=== PATIENT | female | born 1945 | race Caucasian/White ===

== ENCOUNTER 2018-10-04 09:00 | Emergency (ER) | payer BC, OTHER ==
[~2018-10-04] VITALS: Ht 160 cm; Wt 56.7 kg
[2018-10-04] MEDS ORDERED: IV NORMAL SALINE 1000 ML BAG IV ONE (09:15)
--- NOTE | 2018-10-04 09:20 | NUR ---
seen by Dr Conte. patient was refusing tests. MD talked to patient.
[2018-10-04 09:40] LABS: CARBON DIOXIDE 23 mmol/L (21-32); CHLORIDE 100 mmol/L (98-107); CREATININE 0.8 mg/dL (0.6-1.3); GLUCOSE 177 mg/dL (74-106); UREA NITROGEN, BLOOD 9 mg/dL (7-18)
[2018-10-04 09:43] LABS: BASOPHILS % (AUTO) 0.5 % (0.0-2.0); EOSINOPHILS % (AUTO) 0.2 % (0.0-7.0); HEMATOCRIT 37.2 % (31.2-41.9); HEMOGLOBIN 12.9 g/dL (10.9-14.3); LYMPHOCYTES # (AUTO) 0.7 K/uL (20.0-40.0); MEAN CORPUSCULAR HEMOGLOBIN 36.6 uug (24.7-32.8); MEAN CORPUSCULAR HGB CONC 35 g/dL (32.3-35.6); MONOCYTES # (AUTO) 0.7 K/uL (2.0-10.0); NEUTROPHILS % (AUTO) 80.3 % (38.5-71.5); PLATELET COUNT (AUTO) 182 K/uL (179-408); RED BLOOD CELL COUNT(AUTO) 3.51 MIL/uL (3.63-4.92); WHITE BLOOD COUNT (AUTO) 7.4 K/uL (3.8-11.8)
--- NOTE | 2018-10-04 09:43 | NUR ---
to Radiology for CT scan
[2018-10-04 09:45] LABS: POTASSIUM 2.2 mmol/L (3.5-5.1)
[2018-10-04 09:48] LABS: ALANINE AMINOTRANSFERASE 53 U/L (14-59); ALKALINE PHOSPHATASE 134 U/L (50-136); ASPARTATE AMINOTRANSFERASE 27 U/L (15-37); BILIRUBIN,DIRECT 0.2 mg/dL (0.0-0.2); BILIRUBIN,TOTAL 1.1 mg/dL (0.1-1.0); TOTAL PROTEIN, SERUM 7.5 g/dL (6.4-8.2)
[2018-10-04] MEDS ORDERED: POTASSIUM BICARBONATE/CIT AC 25 MEQ TABLET.EFF ONE (09:59)
[2018-10-04] MEDS ORDERED: POTASSIUM BICARBONATE/CIT AC 25 MEQ TABLET.EFF PO ONE (10:00)
[2018-10-04] MEDS ORDERED: POTASSIUM CHLORIDE 50 ML IV SCH (10:00)
[2018-10-04] MEDS ORDERED: POTASSIUM CHLORIDE 50 ML ONE (10:00)
[2018-10-04 10:08] LABS: THYROID STIMULATING HORMONE 2.892 mIU/mL (0.358-3.740)
[2018-10-04] MEDS ORDERED: MAGNESIUM SULFATE/D5W 100 ML IV SCH (10:15)
[2018-10-04] MEDS ORDERED: MAGNESIUM SULFATE/D5W 100 ML ONE (10:41)
[2018-10-04] MEDS ORDERED: LEVETIRACETAM IV 500 MG in IV DEXTROSE 5% 100 ML IV ONE (10:45)
[2018-10-04 11:57] LABS: *BILIRUBIN,URIN NEGATIVE (NEGATIVE); *BLOOD, URINE 1+ (NEGATIVE); *CLARITY,URINE CLEAR (CLEAR); *COLOR,URINE YELLOW (YELLOW); *KETONES,URINE TRACE (NEGATIVE); *UROBILINOGEN,URINE 0.2 E.U./dl (NORMAL); LEUKOCYTE ESTERASE ,URINE 2+ (NEGATIVE); NITRITE, URINE NEGATIVE (NEGATIVE); UGLUCOSE NEGATIVE (NEGATIVE)
--- NOTE | 2018-10-04 12:10 | NUR ---
Received telephone call from [facility]. Pt has been accepted by , pt will go to room 4410 bed 2 ([phone] for report ). Requested information faxed to [phone]. 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
[2018-10-04 12:12] LABS: BACTERIA,URINE MODERATE /HPF (NONE SEEN); SQUAMOUS EPITHELIAL CELL,UR FEW /HPF (NONE SEEN)
[2018-10-04 12:13] LABS: MUCUS,URINE MANY /LPF (0-FEW)
--- NOTE | 2018-10-04 12:18 | NUR ---
ETA for car pick up driver is 1445 per [facility].
[2018-10-04] MEDS ORDERED: CEFTRIAXONE 1 G in IV DEXTROSE 5% 50 ML IV ONE (12:30)
[2018-10-04] MEDS ORDERED: CEFTRIAXONE 1 G VIAL ONE (12:44)
--- NOTE | 2018-10-04 13:38 | NUR ---
ambulated to BR with assistance. Voided
--- NOTE | 2018-10-04 14:51 | NUR ---
report given to [facility] paramedics, [place] and to [facility].
[2018-10-04 15:08] VITALS: BP 113/68
--- NOTE | 2018-10-17 08:45 | NUR ---
LATE ENTRY: 10/04/18: KCL 10meq IVPB was started at 1037 and completed at 1125. 10/04/18: Keppra 500mg IVPB was started at 1125 and completed at 1225.
== END 2018-10-04 15:10 | disposition short-term general hospital (02) ==
LOC: ER 09:00
DX: S06.5X0A Traumatic subdural hemorrhage without loss of consciousness, initial encounter (principal); E87.6 Hypokalemia; E83.42 Hypomagnesemia; V43.52XA Car driver injured in collision with other type car in traffic accident, initial encounter; Y93.89 Activity, other specified; Y92.410 Unspecified street and highway as the place of occurrence of the external cause; Y99.8 Other external cause status
CPT/HCPCS: 36415; 70450; 71045; 72125; 80048; 80076; 81001; 83605; 83735; 83880; 84443; 84484; 85025; 85730; 87040 ×2; 87086; 93005; 96365; 96368; 96375; 99291; J0696; J1953; J3475; J3480; J7060 ×2; 70030-TC; A4663

== ENCOUNTER 2018-11-14 12:16 | Inpatient (IN) | payer BC, MEDICARE, OTHER ==
[~2018-11-14] VITALS: Ht 160 cm; Wt 56.7 kg
[2018-11-14] MEDS ORDERED: IV NORMAL SALINE 1000 ML BAG IV ONE (12:30)
--- NOTE | 2018-11-14 12:50 | NUR ---
pt son at bed side. per pt son, pt fell down yestrday around 10 am and eversince pt is weaker than baseline. notified.
[2018-11-14 12:52] LABS: BASOPHILS # (AUTO) 0.1 K/uL (0.0-8.0); BASOPHILS % (AUTO) 0.7 % (0.0-2.0); EOSINOPHILS % (AUTO) 0.3 % (0.0-7.0); HEMATOCRIT 37.7 % (31.2-41.9); HEMOGLOBIN 12.5 g/dL (10.9-14.3); LYMPHOCYTES # (AUTO) 0.8 K/uL (20.0-40.0); LYMPHOCYTES % (AUTO) 6.4 % (20.5-51.5); MEAN CORPUSCULAR HEMOGLOBIN 29.9 uug (24.7-32.8); MEAN CORPUSCULAR HGB CONC 33 g/dL (32.3-35.6); MEAN CORPUSCULAR VOLUME 90.1 fL (75.5-95.3); MONOCYTES % (AUTO) 7.3 % (0.0-11.0); NEUTROPHILS # (AUTO) 11.2 K/uL (1.8-8.9); NEUTROPHILS % (AUTO) 85.3 % (38.5-71.5); PLATELET COUNT (AUTO) 285 K/uL (179-408); RED BLOOD CELL COUNT(AUTO) 4.18 MIL/uL (3.63-4.92); WHITE BLOOD COUNT (AUTO) 13.2 K/uL (3.8-11.8)
[2018-11-14 12:52] LABS: CARBON DIOXIDE 25 mmol/L (21-32); CHLORIDE 99 mmol/L (98-107); CREATININE 0.6 mg/dL (0.6-1.3); GLUCOSE 155 mg/dL (74-106); POTASSIUM 3.3 mmol/L (3.5-5.1); UREA NITROGEN, BLOOD 12 mg/dL (7-18)
[2018-11-14 12:58] LABS: ALANINE AMINOTRANSFERASE 18 U/L (14-59); ALKALINE PHOSPHATASE 149 U/L (50-136); ASPARTATE AMINOTRANSFERASE 19 U/L (15-37); BILIRUBIN,DIRECT 0.3 mg/dL (0.0-0.2); TOTAL PROTEIN, SERUM 8.3 g/dL (6.4-8.2)
--- NOTE | 2018-11-14 13:50 | NUR ---
[facility] provided for pt per request.
--- NOTE | 2018-11-14 14:10 | NUR ---
rusty velazquez at bedside.
--- NOTE | 2018-11-14 14:40 | NUR ---
RECEIVED REPORT FROM ER NURSE.
--- NOTE | 2018-11-14 15:11 | NUR ---
pt remained calm and comfortable the whole er stay. no change in neuro status.
[2018-11-14] MEDS ORDERED: ASPIRIN 325 MG TABLET PO ONE (15:15)
--- NOTE | 2018-11-14 15:44 | NUR ---
Argelia torres in [facility] - 11/14/18 at 1545 by LIBRA pt transfered to floor in table condition.
--- NOTE | 2018-11-14 15:45 | NUR ---
pt transfered to floor in stable condition.
--- NOTE | 2018-11-14 15:50 | NUR ---
PATIENT BROUGHT UP TO FLOOR FROM ER. PATIENT HAS ACCESS ON THE RIGHT AC 22G LINE IS PATENT AND INTACT. PATIENT IS AWAKE ALERT AND ORIENTED. PATIENT IS ON TELE MONITOR SINUS TACHY. NOTIFIED WORSHIP DIRECTOR MELITON BARRAZA THAT PATIENT IS ON THE FLOOR, SHE WILL PUT IN ORDERS. WILL PUT IN ORDERS FOR URINALYSIS. WILL CONTINUE TO MONITOR PATIENT. PLAN IS TO TRANSFER PATIENT TO [facility] FOR MRI OF THE BRAIN WITHOUT CONTRAST.
[2018-11-14 15:54] LABS: *BILIRUBIN,URIN 1+ (NEGATIVE); *BLOOD, URINE Trace-lysed (NEGATIVE); *COLOR,URINE DARK YELLOW (YELLOW); *KETONES,URINE 1+ (NEGATIVE); LEUKOCYTE ESTERASE ,URINE 1+ (NEGATIVE); NITRITE, URINE NEGATIVE (NEGATIVE); UGLUCOSE NEGATIVE (NEGATIVE)
[2018-11-14 16:00] VITALS: BP 110/59
[2018-11-14 16:10] LABS: *CLARITY,URINE SLIGHTLY CLOUDY (CLEAR)
[2018-11-14 16:12] LABS: BACTERIA,URINE MODERATE /HPF (NONE SEEN); MUCUS,URINE MANY /LPF (0-FEW); SQUAMOUS EPITHELIAL CELL,UR MODERATE /HPF (NONE SEEN); WBC,URINE 20-50 /HPF (0-3)
[2018-11-14] MEDS ORDERED: ONDANSETRON 4 MG/2 ML VIAL IV PRN (18:00)
[2018-11-14] MEDS ORDERED: MAGNESIUM HYDROXIDE 30 ML LIQUID UDC PO PRN (18:00)
[2018-11-14] MEDS ORDERED: Z GUARD REMEDY PASTE 57 GM TUBE TOP PRN (18:00)
[2018-11-14] MEDS ORDERED: POTASSIUM CHLORIDE 20 MEQ TAB.PRT.SR PO ONE (18:00)
[2018-11-14] MEDS ORDERED: ZOLPIDEM 5 MG TABLET PO PRN (18:00)
[2018-11-14] MEDS ORDERED: HYDROCODONE/APAP 5-325MG TABLET PO PRN (18:00)
[2018-11-14] MEDS ORDERED: ACETAMINOPHEN 325 MG TABLET PO PRN (18:00)
[2018-11-14 19:20] VITALS: BP 108/63
--- NOTE | 2018-11-14 19:30 | NUR ---
GAVE REPORT TO [facility]. PATIENT IS STABLE. TRANSFER TO [facility] FOR MRI OF THE BRAIN WITHOUT CONTRAST TO RULE OUT STROKE.
--- NOTE | 2018-11-14 19:48 | NUR ---
SHIFT REPORT GIVEN TO WEFT STRAIGHTENER. PATIENT IS ALERT AND ORIENTED X4. PATIENT IS BEING TRANSFERRED TO [facility] FOR MRI OF THE BRAIN WITHOUT CONTRAST. PATIENT HAS RIGHT AC 22G ACCESS. ONCE PATIENT RETURNS SHE IS TO HAVE A URINALYSIS AND START FLUIDS 0.9% NS AT 75 ML/HR. PATIENT IS ON TELE MONITOR SINUS TACHYCARDIA. NO SKIN ISSUES, NO PHOTOS TAKEN. ADMISSION COMPLETE.
--- NOTE | 2018-11-14 19:48 | NUR ---
CALLED CRISTINA FROM [facility] TO CONFIRM PATIENT'S ETA TO MRI OF THE BRAIN WITHOUT CONTRAST.
--- NOTE | 2018-11-14 19:50 | NUR ---
RECEIVED PATIENT LYING IN BED. IN NO ACUTE DISTRESS. HAD NO COMPLAINTS OF PAIN OR SOB. HEPLOCK ON RIGHT AC IS INTACT AND PATENT. SAFETY MEASURES INITIATED. BED IS LOW AND LOCKED, CALL LIGHT WITHIN REACH. EMT HERE TO PICK PATIENT UP AND BRING TO [facility] FOR MRI.
--- NOTE | 2018-11-14 20:10 | NUR ---
PATIENT LEFT TO [facility] IN STABLE CONDITION.
[2018-11-14 20:32] LABS: *BILIRUBIN,URIN 1+ (NEGATIVE); *BLOOD, URINE 1+ (NEGATIVE); *COLOR,URINE DARK YELLOW (YELLOW); *KETONES,URINE TRACE (NEGATIVE); LEUKOCYTE ESTERASE ,URINE TRACE (NEGATIVE); NITRITE, URINE NEGATIVE (NEGATIVE); UGLUCOSE NEGATIVE (NEGATIVE)
[2018-11-14 20:45] LABS: *CLARITY,URINE HAZY (CLEAR)
[2018-11-14 21:05] LABS: BACTERIA,URINE FEW /HPF (NONE SEEN); MUCUS,URINE MANY /LPF (0-FEW); SQUAMOUS EPITHELIAL CELL,UR MODERATE /HPF (NONE SEEN)
--- NOTE | 2018-11-14 21:40 | NUR ---
PATIENT CAME BACK FROM [facility] IN STABLE CONDITION.
[2018-11-14] MEDS: CEFTRIAXONE 1 G in IV DEXTROSE 5% 50 ML IV SCH (21:56)
[2018-11-14] MEDS: IV NS 1000 ML 1,000 ML IV PRN (21:56)
[2018-11-14] MEDS: ATORVASTATIN 40 MG TABLET PO SCH (22:10)
[2018-11-15] VITALS: BP 100/58
[2018-11-15 04:00] VITALS: BP 109/55
[2018-11-15 06:27] LABS: BASOPHILS % (AUTO) 0.3 % (0.0-2.0); EOSINOPHILS # (AUTO) 0.1 K/uL (0.0-0.7); HEMATOCRIT 33.1 % (31.2-41.9); HEMOGLOBIN 10.9 g/dL (10.9-14.3); LYMPHOCYTES # (AUTO) 0.8 K/uL (20.0-40.0); LYMPHOCYTES % (AUTO) 9.6 % (20.5-51.5); MEAN CORPUSCULAR HEMOGLOBIN 29.9 uug (24.7-32.8); MEAN CORPUSCULAR HGB CONC 33 g/dL (32.3-35.6); MEAN CORPUSCULAR VOLUME 90.7 fL (75.5-95.3); MONOCYTES # (AUTO) 0.7 K/uL (2.0-10.0); MONOCYTES % (AUTO) 8.5 % (0.0-11.0); NEUTROPHILS # (AUTO) 7.1 K/uL (1.8-8.9); NEUTROPHILS % (AUTO) 80.6 % (38.5-71.5); PLATELET COUNT (AUTO) 276 K/uL (179-408); RED BLOOD CELL COUNT(AUTO) 3.64 MIL/uL (3.63-4.92); WHITE BLOOD COUNT (AUTO) 8.8 K/uL (3.8-11.8)
[2018-11-15 06:38] LABS: CARBON DIOXIDE 28 mmol/L (21-32); CHLORIDE 105 mmol/L (98-107); CHOLESTEROL 139 mg/dL (<200); CREATININE 0.5 mg/dL (0.6-1.3); GLUCOSE 144 mg/dL (74-106); HDL CHOLESTEROL 40 mg/dL (40-60); MAGNESIUM 1.6 mg/dL (1.8-2.4); PHOSPHOROUS 3.6 mg/dL (2.5-4.9); POTASSIUM 3.3 mmol/L (3.5-5.1); TRIGLYCERIDES 88 MG/DL (30-150); UREA NITROGEN, BLOOD 8 mg/dL (7-18)
--- NOTE | 2018-11-15 06:40 | NUR ---
PATIENT SLEPT MOST OF SHIFT. HAD NO SIGNS OF ACUTE DISTRESS. NO COMPLAINTS OF PAIN OR SOB. IVF NS WAS STARTED AT 75CC/HR AND ANTIBIOTIC ROCEPHIN WAS GIVEN. PATIENT WAS ABLE TO AMBULATE TO BATHROOM WITH ASSISTANCE. STATED THAT HER LOWER EXTREMITIES WERE FEELING BETTER. SAFETY MEASURES GIVEN.
[2018-11-15] MEDS: ASPIRIN 81 MG TAB.CHEW PO SCH (09:39)
[2018-11-15 11:18] VITALS: BP 111/52
[2018-11-15] MEDS: MAGNESIUM SULFATE/D5W 100 ML IV SCH ×2 (14:22→22:00)
[2018-11-15 15:37] VITALS: BP 103/51
[2018-11-15 20:00] VITALS: BP 106/53
[2018-11-15 20:29] VITALS: BP 106/53
[2018-11-15] MEDS: ATORVASTATIN 40 MG TABLET PO SCH (20:49)
[2018-11-15] MEDS: CEFTRIAXONE 1 G in IV DEXTROSE 5% 50 ML IV SCH (20:50)
[2018-11-16] VITALS: BP 109/78
[2018-11-16 06:14] VITALS: BP 116/59
[2018-11-16 07:15] LABS: BASOPHILS % (AUTO) 0.5 % (0.0-2.0); EOSINOPHILS # (AUTO) 0.2 K/uL (0.0-0.7); EOSINOPHILS % (AUTO) 2.7 % (0.0-7.0); HEMATOCRIT 34.8 % (31.2-41.9); HEMOGLOBIN 11.5 g/dL (10.9-14.3); LYMPHOCYTES # (AUTO) 1.1 K/uL (20.0-40.0); LYMPHOCYTES % (AUTO) 13.7 % (20.5-51.5); MEAN CORPUSCULAR HEMOGLOBIN 29.9 uug (24.7-32.8); MEAN CORPUSCULAR HGB CONC 33 g/dL (32.3-35.6); MEAN CORPUSCULAR VOLUME 90.6 fL (75.5-95.3); MONOCYTES # (AUTO) 0.5 K/uL (2.0-10.0); MONOCYTES % (AUTO) 6.5 % (0.0-11.0); NEUTROPHILS # (AUTO) 6.1 K/uL (1.8-8.9); NEUTROPHILS % (AUTO) 76.6 % (38.5-71.5); PLATELET COUNT (AUTO) 354 K/uL (179-408); RED BLOOD CELL COUNT(AUTO) 3.83 MIL/uL (3.63-4.92)
[2018-11-16 07:16] LABS: CARBON DIOXIDE 27 mmol/L (21-32); CHLORIDE 104 mmol/L (98-107); CREATININE 0.6 mg/dL (0.6-1.3); GLUCOSE 133 mg/dL (74-106); MAGNESIUM 1.9 mg/dL (1.8-2.4); PHOSPHOROUS 4.3 mg/dL (2.5-4.9); POTASSIUM 3.5 mmol/L (3.5-5.1); UREA NITROGEN, BLOOD 7 mg/dL (7-18)
[2018-11-16] MEDS: LEVETIRACETAM 500 MG TABLET PO SCH ×2 (09:07→21:12)
[2018-11-16] MEDS: ASPIRIN 81 MG TAB.CHEW PO SCH (09:07)
[2018-11-16 11:59] VITALS: BP 106/57
[2018-11-16] MEDS: IV NS 1000 ML 1,000 ML IV PRN (14:26)
[2018-11-16 15:38] VITALS: BP 109/61
--- NOTE | 2018-11-16 18:51 | NUR ---
PATIENT IS SITTING UP IN BED, ALERT AND ORIENTED. BED IS IN LOW LOCKED POSITION AND CALL LIGHT IS WITHIN REACH. IV FLUIDS NS RUNNING AT 75ML/HR. PATIENT IS COMFORTABLE, NO DISTRESS OR PAIN REPORTED. VITAL SIGNS STABLE.
--- NOTE | 2018-11-16 19:36 | NUR ---
patient received on bed awake,with no iv access as the iv site was not fucntioning and and day shift rn discontinued the iv site and tried one time ,was unsuccesful. patient instructed to call if desires to stand and call light given to the patient ,patient understand but is with periods of confusion.
--- NOTE | 2018-11-16 20:39 | NUR ---
RN FROM ER CAME TO INSERT AN IV ACCESS, PATIENT REFUSED BUT TRIES TO EXPLAINS SHE NEEDS THE ANTIBIOTICS,
[2018-11-16 20:43] VITALS: BP 114/59
[2018-11-16] MEDS: ATORVASTATIN 40 MG TABLET PO SCH (21:12)
[2018-11-16] MEDS: CEFTRIAXONE 1 G in IV DEXTROSE 5% 50 ML IV SCH (21:12)
--- NOTE | 2018-11-16 21:16 | NUR ---
IV CANNULA TO THE LEFT FOREARM GAUGE 22 INSERTED ASEPTICALLY AND IVF RESUMED,ASSISTED TO THE TOILET TO VOID AND BACK TO BED . WITH CALL LIGHT WITHIN REACH, BED ALARM ON. PATIENT IS WITH PERIODS OF CONFUSION
--- NOTE | 2018-11-16 23:52 | NUR ---
ASLEEP WITH THE SAME IVF ON.
[2018-11-17 05:34] VITALS: BP 120/52
--- NOTE | 2018-11-17 07:08 | NUR ---
ambulated to the bathroom with minimal asssit
--- NOTE | 2018-11-17 07:15 | NUR ---
RECEIVED PATIENT ON BED, AWAKE AAOX3 WITH BOUTS OF CONFUSION THAT WORSENS AT NIGHT. NO ACUTE DISTRESS NOTED. IV ACCESS ON RFA #22 NS @ 75 CC/HR INFUSING WELL. COMFORT MEASURES PROVIDED. WILL COTNINUE TO MONITOR CLOSELY.
[2018-11-17] MEDS: IV NS 1000 ML 1,000 ML IV PRN ×2 (08:02→21:28)
[2018-11-17] MEDS: ASPIRIN 81 MG TAB.CHEW PO SCH (08:14)
[2018-11-17] MEDS: LEVETIRACETAM 500 MG TABLET PO SCH ×2 (08:14→21:21)
[2018-11-17 11:06] VITALS: BP 101/48
[2018-11-17 15:09] VITALS: BP 117/58
--- NOTE | 2018-11-17 19:20 | NUR ---
Rec'd pt in bed awake watching TV. A&O x3 at this time. All safety precautions in place. On RA, no s/s of acute distress noted. No further episodes of tachycardia per shift report HR has been in the 80s. Receiving atb for UTI. No adverse side effects noted. Continent and assisted to bathroom as needed. Voiding freely. No hematuria, denies dysuria. RFA 22g IV site intact and patent, infusing NS @ 75ml/hr. No s/s of complications to IV site. All needs met at this time. Will continue to monitor.
[2018-11-17 20:05] VITALS: BP 126/79
[2018-11-17] MEDS: ATORVASTATIN 40 MG TABLET PO SCH (21:21)
[2018-11-17] MEDS: AMOXIcillin 500 MG CAPSULE PO SCH (21:22)
[2018-11-18] MEDS: AMOXIcillin 500 MG CAPSULE PO SCH ×2 (05:33→13:21)
[2018-11-18 06:14] VITALS: BP 105/47
--- NOTE | 2018-11-18 06:40 | NUR ---
Pt in bed awake. Still with episodes of confusion. x1 episode of thinking her son is parked outside to pick her up. Reoriented as needed. All safety precautions in place. RFA 22 gauge IV site intact infusing NS @ 75ml/hr and tolerating well. Voiding freely. No adverse side effects from Amoxicillin PO for UTI. Afebrile. All needs met at this time. Will endorse to oncoming nurse.
[2018-11-18] MEDS: ASPIRIN 81 MG TAB.CHEW PO SCH (08:25)
[2018-11-18] MEDS: LEVETIRACETAM 500 MG TABLET PO SCH (08:25)
--- NOTE | 2018-11-18 08:30 | NUR ---
Received patient awake, alert x3. With intact patent G20 over left arm running NS at 75cc/hr. Patient was able to tolerate diet and medications well. Denies any pain on urination, or other symptoms afebrile.
[2018-11-18] MEDS: IV NS 1000 ML 1,000 ML IV PRN (10:03)
[2018-11-18 11:17] VITALS: BP 106/61
[2018-11-18] MEDS ORDERED: AMOX500C2 PO (11:55)
[2018-11-18] MEDS ORDERED: ASPI81TA31 PO (11:55)
[2018-11-18] MEDS ORDERED: ATOR40TA PO (11:55)
[2018-11-18] MEDS ORDERED: LEVE500T9 PO (12:30)
--- NOTE | 2018-11-18 13:28 | NUR ---
Discharge to home in stable condition. No complaints of pain. No S/S of infection noted. Was able to tolerate diet and with good oral intake. No SOB, dizziness or chest pains. Not in any form of distress. Instructed to take anti-biotics as directed and to complete 5 days as ordered. Instructed to take home medications and follow up with Dr. Mary Gale on 12/03/18 at 9:30 AM. Routine discharge care done. Patient was seen by ANTHONY Streeter prior to discharge. Was instructed and seen by rn field case manager prior to discharge. Went home via private car, accompanied by Lencho, son.
== END 2018-11-18 13:25 | disposition home health service (06) | DRG 871 ==
LOC: ER 12:16 → TELE 15:15 → MED 11-15 14:20
PROVIDERS: ADMIT Nurse Practitioner Acute Care; ATTEND Nurse Practitioner Acute Care
DX: A41.9 Sepsis, unspecified organism (principal); G93.41 Metabolic encephalopathy; N39.0 Urinary tract infection, site not specified; R65.20 Severe sepsis without septic shock; E87.6 Hypokalemia; S06.5X9D Traumatic subdural hemorrhage with loss of consciousness of unspecified duration, subsequent encounter; W19.XXXD Unspecified fall, subsequent encounter; R29.6 Repeated falls; F32.9 Major depressive disorder, single episode, unspecified
CPT/HCPCS: 36415; 70030-TC; 70450; 70551; 71045; 83735; 84100; 85025; 85730; 87040; 87086; 93005; 97110; 97116; 97530; A4663; G0378; J0696; J3475; J7030; J7060